=== PATIENT | female | born 2000 | race Caucasian/White ===

== ENCOUNTER 2020-09-24 17:32 | Emergency (ER) | payer BC, SELFPAY ==
--- NOTE | ~2020-09-24 | XR_ITS ---
EXAMINATION: XR foot RT min 3V DATE: 09/24/2020 18:36 INDICATION: Foreign body in the soft tissues of the right foot. TECHNIQUE: Dorsoplantar, two oblique and lateral views of the right foot were obtained. COMPARISON: None. FINDINGS: Alignment is normal. No fracture. Joint spaces are normal. Mild soft tissue swelling over the dorsal and lateral aspect of the forefoot. No radiopaque foreign bodies. IMPRESSION: 1. No osseous abnormality or radiopaque foreign body. Reviewed, dictated and finalized at location A.
[2020-09-24 17:51] VITALS: BP 115/71; PULSE 71; RESP 16; TEMP 36.6; O2SAT 100
--- NOTE | 2020-09-24 18:13 | ED.SKABFB ---
HPI - Skin/Abscess/Foreign Bdy General Chief complaint: Skin/Abscess/Foreign Body Stated complaint: Surgery scar on ankle Time Seen by Provider: 09/24/20 18:13 Source: patient and RN notes reviewed Mode of arrival: ambulatory Limitations: no limitations History of Present Illness HPI narrative: 20 year old female who presents to express care wit complaints of moveable mass above scar from previous foot surgery she had when she was 11 years old. Patient states that she just noticed the raised area 2 days ago and area is tender to palpation.Patient denies any injury to her foot recently or any other swelling areas to foot. Patient has no acute redness or warmth to area, no limitation if movement of foot, circulation and sensation intect. MD complaint: other (moveable firm tissue under skin) Onset (ago): day(s) (2) Tetanus up to date: yes Location: R foot Severity: mild Severity scale (1-10): 3 Quality: aching Pain Consistency: intermittent Exacerbating factors: palpation Treatments prior to arrival: none Related Data Home Medications Medication Instructions Recorded Confirmed No Home Medications 09/24/20 09/24/20 Allergies Allergy/AdvReac Type Severity Reaction Status Date / Time No Known Allergies Allergy Verified 09/24/20 18:08 Review of Systems Review of Systems: Narrative: CONSTITUTIONAL: Denies fever, chills, or sweats. EYES: Denies visual changes, redness, or discharge. ENT: Denies rhinorrhea, congestion, sore throat, or otalgia. CARDIOVASCULAR: Denies chest pain, palpitations, or edema. RESPIRATORY: Denies cough or dyspnea. GASTROINTESTINAL: Denies abdominal pain, nausea, vomiting, or diarrhea. GENITOURINARY: Denies dysuria or hematuria. SKIN: Denies rash or itching. MUSCULOSKELETAL: Denies back pain, joint pain, or myalgia. raised circular firm moveable area to lateral dorsal foot above previous scar site, no acute redness or warmth. NEUROLOGIC: Denies headache, numbness, or weakness. PSYCHIATRIC: Denies anxiety or depression. All systems reviewed & are unremarkable except as noted in HPI and below PMFSH Past Medical History Medical History (Updated 09/29/20 @ 16:34 by Sofia Conte NP) Medical history non-contributory Surgical History Surgical History (Updated 09/29/20 @ 16:36 by Sofia Conte NP) History of foot surgery [facility] age 11 Family History Family History (Updated 09/29/20 @ 16:43 by Sofia Conte NP) Grandparent Malignant neoplasm of prostate ALS (amyotrophic lateral sclerosis) Mother Multiple sclerosis Social History Social History (Updated 09/29/20 @ 16:38 by Sofia Conte NP) Smoking status: Never smoker Alcohol intake: current Alcohol use details: rare Substance use: never Substance use type: does not use Living arrangements: alone Comments At time of signature, agree with nursing past medical, surgical, social and family history. There is no relevant family history pertinent to the presenting complaint Exam Narrative: Exam Narrative: GENERAL: Well-appearing, well-nourished, and in no acute distress. HEAD: Normocephalic, atraumatic. EYES: PERRLA and EOMI. ENT: Nares clear, no rhinorrhea or epistaxis. Mucous membranes moist. NECK: Supple. CHEST: Clear to auscultation. No respiratory distress. HEART: Regular rate and rhythm. No murmur heard. Normal peripheral pulses. ABDOMEN: Soft, nontender, nondistended, normal active bowel sounds. EXTREMITIES: Normal range of motion. No edema.1cm raised palpable fibrous area to right foot superior to old incision on right foot, fibrous slightly firm with some discomfort voiced upon palpation SKIN: Warm, dry, no rash. NEURO: No focal deficits. Alert and oriented x3. Course Vital Signs Vital signs: Vital Signs Temperature 36.6 C 09/24/20 17:51 Pulse Rate 71 09/24/20 17:51 Respiratory Rate 16 09/24/20 17:51 Blood Pressure 115/71 09/24/20 17:51 Pulse Oximetr
== END 2020-09-24 19:08 | disposition home or self-care (01) ==
PROVIDERS: Emergency Provider Registered Nurse
DX: R22.41 Localized swelling, mass and lump, right lower limb (principal)
CPT/HCPCS: 73630; 99203; G0463